=== PATIENT | male | born 1955 | race Caucasian/White ===

== ENCOUNTER 2017-06-27 09:12 | Inpatient (IN) | payer OTHER ==
[2017-06-27] VITALS (8 sets, daily range): BP systolic 98–124; BP diastolic 60–91; PULSE 42–49; RESP 10–20; O2SAT 96–98
[~2017-06-27] VITALS: Ht 177.8 cm; Wt 86.6 kg
[2017-06-27] MEDS: 0.9% Sodium Chloride 1,000 ML IV SCH (11:31)
[2017-06-27] MEDS ORDERED: Atropine 1 mg/10 mL (Code) Syringe IVPUSH PRN (11:35)
[2017-06-27] MEDS ORDERED: Ondansetron 2 mg/mL 2 mL Inj IVPUSH PRN ×2 (11:35→20:10)
[2017-06-27] MEDS ORDERED: Alum-Mag Hydrox-Simeth 30 mL Suspension PO PRN (11:35)
[2017-06-27] MEDS ORDERED: Senna-Docusate 8.6-50 mg Tablet PO PRN (11:35)
[2017-06-27] MEDS ORDERED: Polyethylene Glycol (PEG) 17 Gm Powder PO PRN (11:35)
[2017-06-27 12:33] LABS: Magnesium 1.9 mg/dL (1.6-2.6)
[2017-06-27] MEDS ORDERED: FLUT16SP NASAL (12:42)
[2017-06-27] MEDS ORDERED: SIMV40TA5 PO (12:42)
[2017-06-27] MEDS ORDERED: METF500T4 PO (12:42)
[2017-06-27] MEDS ORDERED: ASPI325T32 PO (12:43)
[2017-06-27] MEDS ORDERED: UBID10CA4 PO (12:44)
[2017-06-27] MEDS ORDERED: Nitroglycerin 50,000 mcg/250 mL D5W Premix IV ONE (13:16)
[2017-06-27] MEDS ORDERED: Heparin 1,000 Unit/mL 10 mL Inj ONE (13:16)
[2017-06-27] MEDS ORDERED: Heparin 1,000 Units/500 mL NS Premix IV ONE (13:16)
[2017-06-27] MEDS ORDERED: Heparin 10,000 Unit/1,000 mL NS Premix IV ONE (13:17)
--- NOTE | 2017-06-27 14:08 | PCM.HPMED ---
Subjective Date of Service Jun 27, 2017 Primary Provider: Admitting Physician: Bryce Tan DO Primary Care Physician: Janette Attending Physician: Bryce Tan DO Admit Status: Direct Admit, Admit to [facility] Team Chief Complaint: Chest Pain History of Present Illness: Mr. Bacon is a 61-year-old male with past medical history of diabetes mellitus type 2, hyperlipidemia and tobacco dependence presented to [place] emergency department secondary to chest tightness/pressure 7 days with increasing severity over the last 2 days. Patient states that his pain/ tightness is located in his midsternal area describes it as a 7/10 tight pressure-like feeling with radiation to his back. States that rest seems to alleviate his symptoms somewhat and does not state any specific actions will dramatically increased this pain though it does worsen with exertion and during the afternoons. States that the days leading up to his presentation to the emergency room he become increasingly fatigued and weak with nausea and diaphoresis, denies current chest pain/pressure, emotional dyspnea orthopnea, shortness of breath chest palpitations, fever/chills, abdominal pain, extremity numbness or tingling, headache, visual changes. In the ED cascade he was given Lovenox, EKG reportedly showed ST depression and T-wave inversion with elevated troponin. Dr. Loya [facility] cardiology was consulted and patient was transferred for cardiac catheterization. Review of Systems: A comprehensive review of systems was conducted with the patient and found to be negative except as above in the history of present illness. 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 Family History Per patient Father: Coronary artery disease, bypass surgery Mother: Coronary artery disease with bypass surgery, diabetes Brother, coronary artery disease with angioplasty Social History Hx Alcohol Use: Yes ("a whole bunch about every two weeks") Hx Tobacco Use: Yes Smoking Status: Current Every Day Smoker Living Arrangement: Alone Exam Vital Signs Vital Sign - Last Date Time Temp Pulse Resp B/P Pulse Ox O2 Delivery O2 Flow Rate FiO2 06/27/17 10:27 36.7 48 20 107/68 97 Room Air Exam General: Awake alert laying in hospital bed in no acute distress, well-developed , well-nourished, appropriately interactive HEENT: Normocephalic, atraumatic. Neck: Supple with full range of motion. No jugular venous distension. Bilateral carotid bruits Cardiovascular: Regular rate and rhythm with no murmurs, rubs, or gallops appreciated Pulmonary: Clear to auscultation bilaterally with no crackles, wheezes, or rhonchi. Normal respiratory effort with no use of accessory muscles. Abdomen: Bowel tones present. Soft, nontender, nondistended. Well-healed scar present left flank Extremities: No clubbing, cyanosis, edema Skin: Normal temperature, turgor, and texture Neurological: Cranial nerves grossly intact. Psychiatric: Normal mood and affect. Alert and oriented to person, place, and time. Assessment & Plan Mr. Bacon is a 61-year-old male with past medical history of diabetes mellitus type 2, hyperlipidemia and tobacco dependence direct admit from [facility] secondary to NSTEMI. NSTEMI present on admission. Under evaluation ORA score 4 giving him approximately 20% risk Patient reportedly received Lovenox at [facility] ED -Dr. Loya cardiology performing catheterization at time of dictation -Clopidogrel 600 mg given one time -Continue Plavix 75 mg daily -Continue aspirin 81 mg daily -Continue home statin -Morphine, nitroglycerin when necessary -IVF 80 mL per hour -Continue monitor Diabetes mellitus type II. Present on admission. Ongoing -Hold home metformin -A1c pending -Low-dose Correctional scale insulin ordered -Continue monitor Hyperlipidemia. Present on admission. Ongoing -Continue home statin Tobacco dependence. Present on admission. Ongoing -Counseled patient for tobacco cessation -nicotine patch daily Patient Status: Patient was admitted under inpatient status with expected length of stay greater than two midnights due to severity of presenting symptoms , risk of adverse event, and complexity of treatment plan. GI Prophylaxis: H2 allison VTE Prophylaxis: SCDs Resuscitation Status: CPR: Attempt Resuscitation Time spent 55 minutes Attending Statement I have seen and evaluated patient at bedside in addition to directly supervising care provided by resident physician Dr Green on 06/27/2017. I agree with above documentation. LENA GREEN DO Jun 27, 2017 14:08 Bryce Tan DO Jun 27, 2017 22:00
[2017-06-27] MEDS ORDERED: fentaNYL-PF 50 mCg/mL 2 mL Inj ONE (15:50)
[2017-06-27] MEDS ORDERED: Atropine 1 mg/10 mL (Code) Syringe ONE (15:58)
--- NOTE | 2017-06-27 16:28 | CONS ---
[address] [address] CONSULTATION REPORT PATIENT: JOSE LEDEZMA : 1955 MR#: [id number] ADMIT: 06/27/2017 JOB ID: [id number] DATE OF SERVICE: 06/27/2017 CARDIOLOGY CONSULTATION: REFERRING PHYSICIAN: Stevo Emerson M.D. CHIEF COMPLAINT: Chest pain. HISTORY OF PRESENT ILLNESS: This gentleman was driving to [place] where his PCP practices when he decided to turn and go into [facility]. He had been having off and on chest discomfort for the past few months. For the last three nights, he was waking up with chest discomfort. Yesterday, he had some chest discomfort. He decided to seek medical attention. He described it as a heaviness in his cast. He noticed the discomfort was getting gradually worse and he decided to go to the ED. In the ED he had an EKG which showed some lateral ST-T changes. His troponins were in the indeterminate range. He was admitted to the hospital. This morning Dr. Emerson called me. His chest discomfort had improved but he was still having episode of chest discomfort. His EKGs now showed flattening and T-wave inversions in the lateral leads. His troponin kept trending upwards though it was still in the nondiagnostic range. Next, at the time of interview, the patient is pain free. Next he states he has been noticing this for the past few months. He is currently not working, but he does notice some discomfort in his chest when he tries to do anything overly physical. He is denying any orthopnea or PND. The discomfort is usually not accompanied by any radiation or autonomic symptoms. He has been able to identify no relieving factors other than rest. PAST MEDICAL HISTORY: 1. Recently diagnosed diabetic. 2. Denies history of hypertension. 3. Hypercholesterolemia. PERSONAL HISTORY: He smokes about a pack of cigarettes a day. He also drinks alcohol in binges. FAMILY HISTORY: Both his brothers had heart disease in their 50s. MEDICATIONS AT HOME: Metformin and he is not sure of the rest. Currently is also on a nitro patch. He has been given 40 mg injection of enoxaparin and aspirin. ALLERGIES: None. REVIEW OF SYSTEMS: Comprehensive review of system was done and as per HPI. Pertinently no GI or bleeding. No strokes. No upcoming surgeries. Upon asking leading questions, he does admit that his left shoulder gets weak and he is being evaluated for a rotator cuff injury. PHYSICAL EXAMINATION: Comfortable, middle-aged man who looks his age. Neck is supple. Left-sided bruit is present. No subclavian bruit is appreciated. Chest: Clear. Heart sounds: S1, S2 are regular. No gallops. Abdomen: Soft. Extremities: Negative for CCE. Distal pulses are diminished bilaterally. VENETIAN BLIND TAPE CUTTER: Alert and oriented. EKG as described. LABORATORIES: Noted. Creatinine is pending. His TSH is normal. Troponin in this hospital was 0.27, which is indeterminate. ASSESSMENT AND PLAN: 1. This gentleman presents with a history of progressive angina. I have given him the option of medical therapy versus proceeding ahead with diagnostic angiography and intervention. He prefers to undergo diagnostic angiography. He understands the risks with the procedure. In the interim, I would recommend that he be evaluated for peripheral vascular disease as well as carotid disease. He has diminished pulses in his lower extremities and his left radial is significantly diminished. He probably has subclavian stenosis as well. As mentioned, he has got carotid bruits as well. I also should mention that upon asking leading questions, he did admit when he is in downtown [place], he cannot walk a block because of the ambulation and the terrain. He gets burning and cramping in his calf muscles. 2. Above all, needless to say, he needs to quit smoking completely.
[2017-06-27] MEDS: Sodium Chloride LOK Flush 10 mL Syringe IVFLUSH SCH (16:30)
--- NOTE | 2017-06-27 17:15 | NUR ---
transfer from [facility] patient arrived from [facility] at 1715hrs. A&Ox3. right groin sheath in place. denies CP/SOB, N/V, or dizziness. distal pulses present, right posterior tib and dorsalis pedis 1+ on palpation. instructed patient to remain flat with head on pillow. patient verbalized understanding, but with require frequent reminders. continue to monitor per JEANNETTE protocol.
[2017-06-27] MEDS ORDERED: Glucose 40% Oral Gel 15 Gm Tube PO PRN (17:25)
[2017-06-27] MEDS: Insulin LISPRO 300 Unit/3 mL Inj SUBQ SCH ×2 (17:30→22:00)
[2017-06-27] MEDS ORDERED: Dextrose 10% 250 ML IV PRN (17:50)
--- NOTE | 2017-06-27 18:30 | NUR ---
report called to MAIRA Forrest. patient transferred to CCU bed 2009. right groin and distal pulses checked with Adriane RAO. groin site sheath in place. Groin soft non-tender, no signs of hematoma. distal pulses present 1+. care transferred at approx 1830hrs.
--- NOTE | 2017-06-27 18:35 | NUR ---
Arrival to unit Reports 10/10 substernal chest "tightness". Tele sinus cabrera 38-45, asymptomatic. BP on low end of normal limits. Distal pulses strong and palpable. No reports of SOB/dizziness. SPO2 on RA high 90s. Reports rare dry cough. Patient is a smoker, approx 1 pack per day. No reports of n/v/d/c or abdominal pain. Voiding dark yellow urine via urinal without complication. Patient is alert and oriented x3, ROSE, reports full sensation. Independent at baseline.
--- NOTE | 2017-06-27 19:54 | DI95 ---
[address] [address] INTERVENTIONAL CARDIAC CATHETERIZATION PATIENT: JOSE LEDEZMA : 1955 MR#: [id number] ADMIT: 06/27/2017 JOB ID: [id number] PROCEDURE: Selective right and left coronary angiography, left heart catheterization, percutaneous intervention on the circumflex. INDICATION: 1. Acute coronary syndrome. 2. Femoral angiography. PROCEDURAL DETAILS: The procedure was done via right femoral approach using a 6-Gambian system. Note was made of diminished femoral pulse at the time of intervention. PROCEDURAL DETAILS: The reader and the coders are referred to the procedure log which enumerates this in detail. Briefly, a 6-Gambian system right femoral approach. ANGIOGRAPHIC FINDINGS: 1. Left main short. No significant disease. 2. LAD is a moderate caliber transapical vessel. It has vuzb-kt-lruzramr disease of 20% to 30% in its mid segment. The second diagonal has an ostial 60% to 70% lesion. 3. Circumflex is codominant. It is a moderate caliber vessel. The obtuse marginals have diffuse disease of 20% to 30%. The ramus intermedius is a small 1.5 mm caliber vessel. In its mid segment it has a 60% tubular stenosis. 4. Right coronary artery is codominant. It has an ostial 70% lesion. In its mid segment it has a long tubular stenosis of 60% to 70%. It is subtotally occluded distally. ORA-1 flow is seen in the distal right PDA and in the right posterolateral branches. 5. Left heart catheterization showed preserved LV function. LVEDP was 16. There was no gradient upon pullback. There was no significant MR noted. INTERVENTIONAL REPORT: We then proceeded ahead with an intervention on his circumflex. It was directly stented with a 4.0 x 12 mm Resolute [place] stent delivered at 14 atmospheres with excellent angiographic results. RECOMMENDATIONS: 1. The patient is advised to stay on dual antiplatelet therapy for six months post procedure. 2. I would recommend that the patient have a stress test as an outpatient. If it shows inferior ischemia consideration can be given to intervening on his RCA, though it is going to be challenging and we would essentially end up with metal jacketing this vessel. Unfortunately, because of the diffuse nature of disease in this vessel, it is not well suited for bypass either.
[2017-06-28] MEDS: 0.9% Sodium Chloride 1,000 ML IV SCH (00:01)
[2017-06-28 00:30] VITALS: BP 108/65; PULSE 45; RESP 9; O2SAT 96
[2017-06-28] MEDS: Sodium Chloride LOK Flush 10 mL Syringe IVFLUSH SCH ×2 (01:44→08:13)
[2017-06-28 03:14] LABS: BASOPHILS % (AUTO) 0.7 % (0-3); EOSINOPHILS % (AUTO) 2.4 % (0-5); MONOCYTES % (AUTO) 10.4 % (4-12); Mean Corpuscular Volume 91.5 fL (81-100); NEUTROPHILS % (AUTO) 53.3 % (40-74); Platelet Count 255 bil/L (150-400)
[2017-06-28 04:30] VITALS: BP 105/65; PULSE 50; RESP 13; O2SAT 95
--- NOTE | 2017-06-28 05:33 | NUR ---
P: sleep apnea I: 2L NC, 5L oxymask, cpap w/ 3L bled in E: A/O, impulsive, restless. Unable to sleep til midnight. Snoring w/ profound sleep apnea. RA sats down to 70s, non sustained. Add 2L NC changing to 5L oxymask, no change in sats. MD ordered cpap. Cpap w/ 3L bled in and sats stabilized in the mid to high 90s. c/o low back pain. Tylenol, repositioning, and ice. Pt up to chair when off BR. Low back discomfort currently, 1-2/10, aching. Denies dyspnea, N/V. Ate two dinners. Voiding via urinal. Tele SB, 40s generally, 30-60. BP stable low.
[2017-06-28 07:00] VITALS: PULSE 55
--- NOTE | 2017-06-28 07:03 | PCM.PNMED ---
Subjective Date of Service Jun 28, 2017 Subjective P: sleep apnea I: 2L NC, 5L oxymask, cpap w/ 3L bled in E: A/O, impulsive, restless. Unable to sleep til midnight. Snoring w/ profound sleep apnea. RA sats down to 70s, non sustained. Add 2L NC changing to 5L oxymask, no change in sats. ordered cpap. Cpap w/ 3L bled in and sats stabilized in the mid to high 90s. c/o low back pain. Tylenol, repositioning, and ice. Pt up to chair when off BR. Low back discomfort currently, 1-2, aching. Denies dyspnea, N/V. Ate two dinners. Voiding via urinal. Tele SB, 40s generally, 30-60. BP stable low. Exam Vital Signs Vital Sign - Last Date Time Temp Pulse Resp B/P Pulse Ox O2 Delivery O2 Flow Rate FiO2 06/28/17 04:30 36.5 50 13 105/65 95 CPAP 3.00 Intake and Output 06/27/17 06/27/17 06/28/17 Cumulative From/Thru 15:00 23:00 07:00 06/27/17 10:27 - 06/28/17 06:13 Intake Total 1595 ml 1595 ml Output Total 1600 ml 1600 ml Balance -5 ml -5 ml Intake Oral 1260 ml 1260 ml IV Total 335 ml 335 ml Output Urine Total 1600 ml 1600 ml # Bowel Movements 0 0 0 Lab and Diagnostics Laboratory Tests Test 06/27/17 11:50 06/28/17 02:58 Hemoglobin A1c 7.0% (4.8-5.6) Magnesium Level 1.9mg/dL (1.6-2.6) 2.0mg/dL (1.6-2.6) Troponin T 0.027ug/L (0.0-0.011) Thyroid Stimulating Hormone (TSH) 3.130uIU/mL (0.450-4.500) Hold Panda Top Tube Received (Received) White Blood Count 13.2th/mm3 (3.8-10.1) Red Blood Count 3.90mil/mm3 (4.40-5.80) Hemoglobin 12.1g/dL (13.8-17.2) Hematocrit 35.7% (41.0-50.0) Mean Corpuscular Volume 91.5fL (81-100) Mean Corpuscular Hemoglobin 31.0pg (27.0-35.0) Mean Corpuscular Hemoglobin Concent 33.9% (32.0-37.0) Red Cell Distribution Width 14.3% (12.3-15.4) Platelet Count 255bil/L (150-400) Neutrophils (%) (Auto) 53.3% (40-74) Lymphocytes (%) (Auto) 33.0% (14-46) Monocytes (%) (Auto) 10.4% (4-12) Eosinophils (%) (Auto) 2.4% (0-5) Basophils (%) (Auto) 0.7% (0-3) Sodium Level 136mEq/L (134-144) Potassium Level 4.3mEq/L (3.5-5.2) Chloride Level 101mEq/L (97-108) Carbon Dioxide Level 25mmol/L (18-29) Blood Urea Nitrogen 15mg/dL (6-24) Creatinine 0.66mg/dL (0.76-1.27) Estimat Glomerular Filtration Rate 131mL/min (>59) Glucose Level 130mg/dL (60-99) Calcium Level 8.9mg/dL (8.5-10.1) Total Bilirubin 0.4mg/dL (0.0-1.2) Aspartate Amino Transf (AST/SGOT) 13U/L (0-50) Alanine Aminotransferase (ALT/SGPT) 17U/L (0-44) Alkaline Phosphatase 68U/L (25-160) Total Protein 6.2g/dL (6.4-8.4) Albumin 4.0g/dL (3.4-5.0) Triglycerides Level 254mg/dL (0-149) Cholesterol Level 179mg/dL (100-199) LDL Cholesterol, Calculated 92.200mg/dL (0-99) VLDL Cholesterol 50.800mg/dL HDL Cholesterol 36mg/dL (>39) Cholesterol/HDL Ratio 4.97 (0.0-4.4) Result Diagram: 06/28/17 0258 06/28/17 0258 Additional Diagnostics INTERVENTIONAL REPORT: We then proceeded ahead with an intervention on his circumflex. It was directly stented with a 4.0 x 12 mm Resolute [place] stent delivered at 14 atmospheres with excellent angiographic results. RECOMMENDATIONS: 1. The patient is advised to stay on dual antiplatelet therapy for six months post procedure. 2. I would recommend that the patient have a stress test as an outpatient. If it shows inferior ischemia consideration can be given to intervening on his RCA, though it is going to be challenging and we would essentially end up with metal jacketing this vessel. Unfortunately, because of the diffuse nature of disease in this vessel, it is not well suited for bypass either. Assessment & Plan Mr. Bacon is a 61-year-old male with past medical history of diabetes mellitus type 2, hyperlipidemia and tobacco dependence direct admit from [facility] secondary to NSTEMI. NSTEMI present on admission. Under evaluation ORA score 4 giving him approximately 20% risk Patient reportedly received Lovenox at [facility] ED -Dr. Loya cardiology performing catheterization at time of dictation -Clopidogrel 600 mg given one time -Continue Plavix 75 mg daily -Continue aspirin 81 mg daily -Continue home statin -Morphine, nitroglycerin when necessary -IVF 80 mL per hour -Continue monitor Diabetes mellitus type II. Present on admission. Ongoing -Hold home metformin -A1c pending -Low-dose Correctional scale insulin ordered -Continue monitor Hyperlipidemia. Present on admission. Ongoing -Continue home statin Tobacco dependence. Present on admission. Ongoing -Counseled patient for tobacco cessation -nicotine patch daily Patient Status: Patient was admitted under inpatient status with expected length of stay greater than two midnights due to severity of presenting symptoms , risk of adverse event, and complexity of treatment plan. GI Prophylaxis: H2 allison VTE Prophylaxis: SCDs VTE Mechanical Devices: Intermittant Pneumatic CD Resuscitation Status: CPR: Attempt Resuscitation Brittany Carter DO Jun 28, 2017 07:03
[2017-06-28 07:04] VITALS: RESP 16; O2SAT 97
[2017-06-28 07:53] VITALS: PULSE 61
[2017-06-28] MEDS: Insulin LISPRO 300 Unit/3 mL Inj SUBQ SCH ×2 (08:00→12:00)
[2017-06-28 08:15] VITALS: BP 116/62; PULSE 54; RESP 14; O2SAT 96
[2017-06-28] MEDS ORDERED: Fluticasone 0.05% 15 Spray/2 Gm 16 Gm Nasal Spray NASAL SCH (08:30)
[2017-06-28] MEDS ORDERED: UBIDECARENONE 10 MG PO SCH (08:30)
--- NOTE | 2017-06-28 11:37 | PCM.DIMED ---
Brittany Carter DO 06/28/17 1119: Discharge Instructions Date of Service Jun 28, 2017 Dates of Hospitalization Jun 27, 2017 at 10:14 Discharge Diagnosis Discharge Diagnosis Non- ST segment Elevation Myocardial Infarction status post stent placement on the circumflex coronary artery Acute Coronary Syndrome Diabetes mellitus type II Hyperlipidemia Tobacco dependence Diet Discharge Diet: Heart Healthy Activity Discharge Activity: No restrictions Call your provider Call your provider for: Fever or Chills, Shortness of breath, Bleeding, Chest pain, Vomitting, Excessive diarrhea, Weakness (unilateral) Patient Instructions Patient Instructions You came to [facility] because you were having chest tightness and pressure that had been progressively getting worse. They found certain lab and EKG results that were concerning for a heart attack. As a result, you were sent to [facility] for a cardiac catheterization to investigate if there is a blockage of your heart arteries. As Dr. Loya, the rail car operator, has discussed with you, you had a blockage in your Circumflex artery and so he placed a stent there. It is really important that you take Plavix for at least 6 months and ASA indefinitely. In addition, he also found extensive plaques on your Right Coronary Artery. For this, he suggested medical management with medications. We will also be sending you home with a higher dose of cholesterol medication. He would like to see you in 2-3 weeks to do a Treadmill Stress Test. This is a procedure done to see how your heart responds to exertion. We also discussed the importance of smoking cessation to prevent further occlusion of your heart blood vessels. Your Primary Doctor can provide you with further resources to help with this process whenever you feel ready to do so. Lastly, your hemoglobin A1C, which is a 3 month average of your blood sugars was elevated at 7.0 %. It is really important to have better control of your diabetes, given your heart disease. We talked about decreasing your carbohydrate intake. In addition, Dr. Lazo, mentioned books that you may be interested in: The Diabetes Solution by Len Avendano and Wheat Belly by Dr. Martinez Kruger. Please discuss better diabetes control with your primary care doctor. Follow-up plan Follow up with Primary care provider in 1 week and with Cardiology in 2-3 weeks. Follow-up Provider: August Huitron MD Follow-up with PCP in: 1 week Provider: Sla Loya MD Follow-up in: 2 weeks Agustín Lazo MD 06/29/17 1616: Discharge Instructions Attending's Statement The patient was seen and examined together with Dr. Carter on 06/28/2017 and I agree with the history, exam and plan as outlined in the note above. . Brittany Carter DO Jun 28, 2017 11:19 Agustín Lazo MD Jun 29, 2017 16:16
--- NOTE | 2017-06-28 11:52 | DRSVH ---
PROCEDURE: US DUPLEX DOPPLER BILATERAL LEG ARTERIES ([id number]) INDICATIONS: PERIPHERAL VASCULAR DISEASE TECHNIQUE: Color and pulse Doppler interrogation was performed of both lower extremity arterial syst ems, with image documentation. COMPARISON: None. FINDINGS: Right lower extremity: Vascular Ultrasound Procedure Report Findings(Artery of Lower Extremity)(Right) Common Femoral Artery(Distal) Velocity: 112.10 cm/s Profunda Femoris Artery(Proximal) Velocity: 69.40 cm/s, 86 cm/s Superficial Femoral Artery(Proximal) Velocity: 102.70 cm/s Superficial Femoral Artery(Mid-longitudinal) Velocity: Occluded. Superficial Femoral Artery(Distal) Velocity: 79.50 cm/s, 22.40 cm/s Popliteal Artery(Mid-longitudinal) Velocity: 43.40 cm/s Posterior Tibial Artery(Distal) Velocity: 12.30 cm/s Dorsalis Pedis Artery(Distal) Velocity: 35 cm/s Grayscale findings: Severe scattered plaque. Left lower extremity: Vascular Ultrasound Procedure Report Findings(Artery of Lower Extremity)(Left) Common Femoral Artery(Distal) Velocity: 150.90 cm/s Profunda Femoris Artery(Proximal) Velocity: 184 cm/s Superficial Femoral Artery(Proximal) Velocity: 125.60 cm/s Superficial Femoral Artery(Mid-longitudinal) Velocity: 125.60 cm/s Superficial Femoral Artery(Distal) Velocity: 93.30 cm/s Popliteal Artery(Mid-longitudinal) Velocity: 65.90 cm/s Posterior Tibial Artery(Distal) Velocity: 15.90 cm/s Dorsalis Pedis Artery(Distal) Velocity: 97 cm/s. Grayscale findings: Moderate scattered plaque. IMPRESSION: 1. 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 2. Scattered plaque within the left lower extremity without hemodynamically significant stenosis. Dictated by: Mo Hurtado Vidhi Interpreted: David Dotson MD on 06/28/2017 at 10:41 Transcribed by: LOYD on 06/28/2017 at 14:52 Approved by: David Dotson M.D. on 06/29/2017 at 9:16
[2017-06-28] MEDS ORDERED: LISI-571 PO (12:42)
[2017-06-28] MEDS ORDERED: ASPI81TA3 PO (12:42)
[2017-06-28] MEDS ORDERED: CLOP75TA28 PO (12:42)
[2017-06-28] MEDS ORDERED: ATOR80TA PO (12:42)
--- NOTE | 2017-06-28 13:28 | NUR ---
Social Work: Initial Assessment/Multidisciplinary Rounds/Discharge D: Per EMR review, patient is a 61 year old male admitted for NSTEMI. patient is [facility] [employer] insurance with no LTC or VA benefits. PCP is Auguts Huitron MD. NOK is Farhana Bacon, dtr, . Advanced directives is not completed- information provided. Readmit score is high, 3/8. Pt discussed in Multidisciplinary rounds. Capacity for self care discussed; no concerns or needs at this time. Patient to discharge home today with no needs for discharge. EARTH SCIENCES PROFESSOR met with the patient at bedside. Sw role explained, Contact information and discharge planning checklist provided. See initial assessment. Patient lives at home in [place] and is I at baseline with ADLs, mobility and self-care. patient identifies no discharge needs or concerns. Patient has no HH or SNF history. patient's son is coming to pick him up. EMR reviewed; patient ambulating I and no barriers to discharge identified. A: Pt who is I at baseline. P: patient to discharge home via POV and no identified social work needs. EARTH SCIENCES PROFESSOR to continue to follow until patient is discharged. DAKOTA Arechiga Addendum: 06/28/17 at 1335 by JOSIAH FREIRE Amended: Links added.
--- NOTE | 2017-06-28 16:05 | NUR ---
Ready for Discharge when Son arrives from [place]. Stable/ambulating well/no chest pain or assoc symptoms. Rt groin site stable, distal pulses strong, equal. SR 80s, BP 116/82.
--- NOTE | 2017-06-28 16:43 | PCM.DC.MED ---
Discharge Summary Date of Service Jun 28, 2017 Dates of Hospitalization Date of Hospital Admission Jun 27, 2017 at 10:14 Date of Discharge: Jun 28, 2017 Providers: Admitting Physician: Bryce Tan DO Primary Care Physician: August Huitron MD Attending Physician: Agustín Lazo MD Diagnosis at Time of Discharge Diagnosis at Time of Discharge Non- ST segment Elevation Myocardial Infarction status post stent placement on the circumflex coronary artery Acute Coronary Syndrome Diabetes mellitus type II Hyperlipidemia Tobacco dependence Consultations Cardiology, Dr. Loya was consulted Procedures ECG 12 Lead EKGs showed flattening and T-wave inversions in the lateral leads. Other Diagnostics ANGIOGRAPHIC FINDINGS: 1. Left main short. No significant disease. 2. LAD is a moderate caliber transapical vessel. It has skxw-zs-[id number] disease of 20% to 30% in its mid segment. The second diagonal has an ostial 60% to 70% lesion. 3. Circumflex is codominant. It is a moderate caliber vessel. The obtuse marginals have diffuse disease of 20% to 30%. The ramus intermedius is a small 1.5 mm caliber vessel. In its mid segment it has a 60% tubular stenosis. 4. Right coronary artery is codominant. It has an ostial 70% lesion. In its mid segment it has a long tubular stenosis of 60% to 70%. It is subtotally occluded distally. ORA-1 flow is seen in the distal right PDA and in the right posterolateral branches. 5. Left heart catheterization showed preserved LV function. LVEDP was 16. There was no gradient upon pullback. There was no significant MR noted. INTERVENTIONAL REPORT: We then proceeded ahead with an intervention on his circumflex. It was directly stented with a 4.0 x 12 mm Resolute Shattuck stent delivered at 14 atmospheres with excellent angiographic results. RECOMMENDATIONS: 1. The patient is advised to stay on dual antiplatelet therapy for six months post procedure. 2. I would recommend that the patient have a stress test as an outpatient. If it shows inferior ischemia consideration can be given to intervening on his RCA, though it is going to be challenging and we would essentially end up with metal jacketing this vessel. Unfortunately, because of the diffuse nature of disease in this vessel, it is not well suited for bypass either. Sal Loya MD 06/27/17 8995 Brief History Per H&P by Dr Green on 06/27/17 Mr. Bacon is a 61-year-old male with past medical history of diabetes mellitus type 2, hyperlipidemia and tobacco dependence presented to [place] emergency department secondary to chest tightness/pressure 7 days with increasing severity over the last 2 days. Patient states that his pain/ tightness is located in his midsternal area describes it as a 7/10 tight pressure-like feeling with radiation to his back. States that rest seems to alleviate his symptoms somewhat and does not state any specific actions will dramatically increased this pain though it does worsen with exertion and during the afternoons. States that the days leading up to his presentation to the emergency room he become increasingly fatigued and weak with nausea and diaphoresis, denies current chest pain/pressure, emotional dyspnea orthopnea, shortness of breath chest palpitations, fever/chills, abdominal pain, extremity numbness or tingling, headache, visual changes. In the ED cascade he was given Lovenox, EKG reportedly showed ST depression and T-wave inversion with elevated troponin. Dr. Loya [facility] cardiology was consulted and patient was transferred for cardiac catheterization. Hospital Course Mr. Bacon is a 61-year-old male with past medical history of diabetes mellitus type 2, hyperlipidemia and tobacco dependence direct admit from [facility] secondary to NSTEMI. He was taken immediately to the cardiac catheterization lab at [facility]. Supply Chain Development Manager, Dr. Loya performed the cath and placed a stent in the circumflex. Patient is discharged to home in stable condition with close follow-up with PCP and cardiology. Supply Chain Development Manager recommended sending patient home on ASA, Plavix, Lipitor, Lisinopril and Beta-Robbie. However, give his low HR in 40s-50s and low BP, we held off on beta-robbie. This can be reassessed by outpatient PCP and cardiology. NSTEMI present on admission ORA score 4 giving him approximately 20% risk Patient reportedly received Lovenox at [facility] ED -Dr. Loya cardiology performed cardiac catheterization with stent placement in circumflex as described above -Other findings include occlusion in Right Coronary Artery as described in angiography findings above -Dr. Loya recommends outpatient stress test in 2-3 weeks. If it shows inferior ischemia consideration can be given to intervening on his RCA. -Clopidogrel 600 mg given one time -Continued Plavix 75 mg daily -Continued aspirin 81 mg daily -Continued statin -Morphine, nitroglycerin when necessary -Received IVF 80 mL per hour -Supply Chain Development Manager recommended sending patient home on ASA, Plavix, Lipitor, Lisinopril and Beta-Robbie. However, give his low HR in 40s-50s and low BP, we held off on beta-robbie. -Patient underwent US studies ordered by Supply Chain Development Manager, Dr. Loya. Results pending. Discuss these results during outpatient cardiology follow-up Diabetes mellitus type II. Present on admission. Ongoing -Held home metformin -A1c7.0% -Low-dose Correctional scale insulin ordered -Continue monitor -Follow-up with PCP with regards to tighter blood glucose control -Discussed importance of decreasing carbohydrates in his diet Hyperlipidemia. Present on admission. Ongoing -Patient will be sent home on Lipitor 80 mg Tobacco dependence. Present on admission. Ongoing -Counseled patient for tobacco cessation -received nicotine patch daily inpatient Code Status: Full Code Exam Vital Signs (Last) Date Time Temp Pulse Resp B/P Pulse Ox O2 Delivery O2 Flow Rate FiO2 06/28/17 08:15 36.6 54 14 116/62 96 Room Air 06/28/17 07:04 3.00 Exam General: Patient is lying comfortably on bed, AAOX3, not in acute distress, cooperative and pleasant. HEENT: head normocephalic and atraumatic, PERRLA, EOMI, no scleral icterus, noninjected conjunctiva Neck: neck supple, non-tender, no lymphadenopathy, trachea midline, no JVD, bilateral carotid bruits CV: regular rate and rhythm, s1 and s2 heard, no rubs, murmurs or gallops, no edema, diminished pedal pulses and radial pulses bilaterally Lungs: Clear to auscultation bilaterally, no wheezes, rales or rhonchi, no increased work of breathing Abdomen: normoactive bowel sounds on 4Q, soft, non-distended, non-tender to palpation, no organomegally, Skin: warm and dry Musculoskeletal: 5/5 UE and LE strength bilaterally, full ROM bilaterally Neuro: Grossly neurologically intact, cranial nerves II through XII intact, no dyskinesia, dysmetria, or dysdiadochokinesia noted, no pronator drift, negative Romberg test, sensation intact in extremities Psych: Normal mood and affect Test 06/27/17 11:50 06/28/17 02:58 Hemoglobin A1c 7.0% (4.8-5.6) Thyroid Stimulating Hormone (TSH) 3.130uIU/mL (0.450-4.500) Hold Panda Top Tube Received (Received) White Blood Count 13.2th/mm3 (3.8-10.1) Red Blood Count 3.90mil/mm3 (4.40-5.80) Hemoglobin 12.1g/dL (13.8-17.2) Hematocrit 35.7% (41.0-50.0) Mean Corpuscular Volume 91.5fL (81-100) Mean Corpuscular Hemoglobin 31.0pg (27.0-35.0) Mean Corpuscular Hemoglobin Concent 33.9% (32.0-37.0) Red Cell Distribution Width 14.3% (12.3-15.4) Platelet Count 255bil/L (150-400) Neutrophils (%) (Auto) 53.3% (40-74) Lymphocytes (%) (Auto) 33.0% (14-46) Monocytes (%) (Auto) 10.4% (4-12) Eosinophils (%) (Auto) 2.4% (0-5) Basophils (%) (Auto) 0.7% (0-3) Sodium Level 136mEq/L (134-144) Potassium Level 4.3mEq/L (3.5-5.2) Chloride Level 101mEq/L (97-108) Carbon Dioxide Level 25mmol/L (18-29) Blood Urea Nitrogen 15mg/dL (6-24) Creatinine 0.66mg/dL (0.76-1.27) Estimat Glomerular Filtration Rate 131mL/min (>59) Glucose Level 130mg/dL (60-99) Calcium Level 8.9mg/dL (8.5-10.1) Magnesium Level 2.0mg/dL (1.6-2.6) Total Bilirubin 0.4mg/dL (0.0-1.2) Aspartate Amino Transf (AST/SGOT) 13U/L (0-50) Alanine Aminotransferase (ALT/SGPT) 17U/L (0-44) Alkaline Phosphatase 68U/L (25-160) Troponin T 0.013ug/L (0.0-0.011) Total Protein 6.2g/dL (6.4-8.4) Albumin 4.0g/dL (3.4-5.0) Triglycerides Level 254mg/dL (0-149) Cholesterol Level 179mg/dL (100-199) LDL Cholesterol, Calculated 92.200mg/dL (0-99) VLDL Cholesterol 50.800mg/dL HDL Cholesterol 36mg/dL (>39) Cholesterol/HDL Ratio 4.97 (0.0-4.4) Discharge Medications Discharge Medications Aspirin Chew (Aspirin Chew) 81 Mg Chew 81 MG PO DAILY Prescribed by: Sanjiv YEE Atorvastatin (Lipitor) 80 Mg Tablet 80 MG PO DAILY Prescribed by: Sanjiv YEE Clopidogrel (Clopidogrel) 75 Mg Tablet 75 MG PO DAILY Prescribed by: Sanjiv YEE Fluticasone Propionate (Fluticasone Propionate Nasal) 16 Gm [place].susp 2 SPRAYS NASAL DAILY (Reported) Lisinopril (Lisinopril) 5 Mg Tablet 2.5 MG PO DAILY Prescribed by: Sanjiv YEE Metformin (Metformin) 500 Mg Tablet 500 MG PO BIDWM (Reported) Ubidecarenone (Co Q-10) 10 Mg Capsule 10 MG PO DAILY (Reported) Followup Plan Disposition: Patient is discharged home in stable condition. Follow-up plan Follow up with Primary care provider in 1 week and with Cardiology in 2-3 weeks. Discharge Diet: Heart Healthy Discharge Activity: No restrictions Patient Instructions You came to [facility] because you were having chest tightness and pressure that had been progressively getting worse. They found certain lab and EKG results that were concerning for a heart attack. As a result, you were sent to [facility] for a cardiac catheterization to investigate if there is a blockage of your heart arteries. As Dr. Loya, the ornament stapler, has discussed with you, you had a blockage in your Circumflex artery and so he placed a stent there. It is really important that you take Plavix for at least 6 months and ASA indefinitely. In addition, he also found extensive plaques on your Right Coronary Artery. For this, he suggested medical management with medications. We will also be sending you home with a higher dose of cholesterol medication. He would like to see you in 2-3 weeks to do a Treadmill Stress Test. This is a procedure done to see how your heart responds to exertion. We also discussed the importance of smoking cessation to prevent further occlusion of your heart blood vessels. Your Primary Doctor can provide you with further resources to help with this process whenever you feel ready to do so. Lastly, your hemoglobin A1C, which is a 3 month average of your blood sugars was elevated at 7.0 %. It is really important to have better control of your diabetes, given your heart disease. We talked about decreasing your carbohydrate intake. In addition, Dr. Lazo, mentioned books that you may be interested in: The Diabetes Solution by Len Avendano and Wheat Belly by Dr. Martinez Kruger. Please discuss better diabetes control with your primary care doctor. Follow-up Provider: August Huitron MD Follow-up with PCP in: 1 week Provider: Sal Loya MD Follow-up in: 2 weeks Time spent Greater than 30 minutes was spent in preparation of discharge with greater than 50% of that time dedicated to patient counseling and coordination of care. . Attending Statement The patient was seen and examined together with Dr. Carter on 06/28/2017 and I agree with the history, exam and plan as outlined in the note above. . copies to: August Huitron MD; Sal Loya MD, Alexa N DO Jun 28, 2017 16:43 Agustín Lazo MD Jun 29, 2017 16:17
--- NOTE | 2017-06-28 17:15 | NUR ---
Discharge to home, accompanied by son. Discharge instructions & documents reviewed in detail w/ pt; signed. All belongings, valuables from safe in care of pt. Accompanied by staff to Son's vehicle.
--- NOTE | 2017-07-03 08:50 | DRSVH ---
PROCEDURE: US BILATERAL DUPLEX DOPPLER IMAGING OF THE CAROTIDS ([id number]) INDICATIONS: CORONARY ARTERY DISEASE/HYPERLIPIDEMIA TECHNIQUE: Color and pulse Doppler interrogation was performed of both carotid systems, with image documentation and velocity measurements. COMPARISON: None. FINDINGS: All stenosis calculations are based on NASCET criteria. Right side: Brachial blood pressure: Not obtained. Common Carotid Artery(Distal) PSV: 79.10 cm/s Internal Carotid Artery PSV- Proximal: 118.10 cm/s Mid-lon.90 cm/s Distal: 91.90 cm/s EDV - Proximal: 43.20 cm/s Mid-lon.50 cm/s Distal: 39.10 cm/s External Carotid Artery(Proximal) PSV: 158.70 cm/s ICA/CCA PSV ratio: 1.2 Jordan scale imaging description: Moderate scattered plaque. Percent internal carotid artery stenosis: Less than 50% stenosis. Vertebral artery: Flow direction is antegrade. Left side: Brachial blood pressure: 116/62 mm Hg. Common Carotid Artery(Distal) PSV: 85.80 cm/s Internal Carotid Artery PSV - Proximal: 116.90 cm/s Mid-lon.50 cm/s Distal: 116.90 cm/s EDV - Proximal: 17.50 cm/s Mid-lon.50 cm/s Distal: 14.60 cm/s External Carotid Artery(Proximal) PSV: 154.90 cm/s ICA/CCA PSV ratio: 1.2 Jordan scale imaging description: Moderate scattered plaque. Percent internal carotid artery stenosis: Less than 50%. Vertebral artery: Antegrade flow. The left subclavian artery also was evaluated which appears patent and no significant subclavian adi rial stenosis is seen. IMPRESSION: Less than 50% bilateral internal carotid artery stenosis. No significant left subclavian arterial stenosis identified. Dictated by: Mo Hurtado Vidhi Interpreted: David Dotson MD on 06/28/2017 at 10:40 Transcribed by: TIMOTEO on 07/03/2017 at 8:49 Approved by: David Dotson M.D. on 07/03/2017 at 9:09
== END 2017-06-28 17:23 | disposition home or self-care (01) | DRG 247 ==
LOC: PCC 10:14 → CCU 17:43 → PCC 06-28 09:43
PROVIDERS: ADMIT Family Medicine; ATTEND Internal Medicine
PROC: B2111ZZ Fluoroscopy of Multiple Coronary Arteries using Low Osmolar Contrast (ICD-10-PCS; principal; 2017-06-27)
PROC: 027044Z Dilation of Coronary Artery, One Artery with Drug-eluting Intraluminal Device, Percutaneous Endoscopic Approach (ICD-10-PCS; 2017-06-27)
PROC: 4A023N7 Measurement of Cardiac Sampling and Pressure, Left Heart, Percutaneous Approach (ICD-10-PCS; 2017-06-27)
DX: I21.4 Non-ST elevation (NSTEMI) myocardial infarction (principal); E11.9 Type 2 diabetes mellitus without complications; F17.210 Nicotine dependence, cigarettes, uncomplicated; I25.10 Atherosclerotic heart disease of native coronary artery without angina pectoris; Z79.82 Long term (current) use of aspirin; Z79.84 Long term (current) use of oral hypoglycemic drugs; E78.5 Hyperlipidemia, unspecified; Z71.6 Tobacco abuse counseling; I24.9 Acute ischemic heart disease, unspecified